=== PATIENT | female | born 1970 | race Caucasian/White ===

== ENCOUNTER 2025-04-15 20:54 | Inpatient (IN) | payer OTHER, SELFPAY ==
[2025-04-15] VITALS (12 sets, daily range): BP systolic 20–113; BP diastolic 55–67; BMI 21.8
[2025-04-15] MEDS: NSS 1000 IV ×2 (08:34→12:59)
[2025-04-15] MEDS: ZOFRAN 4 MG IV (08:35)
[2025-04-15] MEDS: DILAUDID 0.5 MG IV ×2 (08:35→13:56)
[2025-04-15 08:45] LABS: ALT (SGPT) 14 U/L (0-35); AST (SGOT) 16 U/L (14-36); Albumin 4.2 g/dl (3.5-5.0); Alkaline Phosphatase 42 U/L (38-126); Blood Urea Nitrogen 18 mg/dl (7-17); Calcium 8.7 mg/dl (8.4-10.2); Carbon Dioxide 22 mmol/L (22-30); Chloride 100 mmol/L (98-107); Estimated Creatinine Clearance 75 ml/min; Glucose 151 mg/dl (70-99); Lipase 59 U/L (23-300); Potassium 3.9 mmol/L (3.5-5.1); Sodium 129 mmol/L (135-145); Total Protein 6.6 g/dl (6.3-8.2); eGFR > 60.00
[2025-04-15 08:47] LABS: Hematocrit 39.5 % (37.0-47.0); Hemoglobin 13.2 g/dL (12.0-16.0); Mean Corp Hgb Conc. 33.4 g/dL (33.0-37.0); Mean Corpuscular Volume 94.7 fL (81.0-99.0); Platelet Count 249 10^3/uL (130-400); Red Cell Dist. Width 12.1 % (11.5-14.5)
--- NOTE | 2025-04-15 08:56 | ED.GENMED ---
History of Present Illness
<Oscar Galvez Jr., PA-C - Last Filed: 04/15/25 12:06>
General
Chief Complaint: Abdominal Symptoms
Source: patient
Exam Limitations: none
Time Seen by Provider: 04/15/25 08:18
Nursing documentation reviewed up to this point in time: agreed with
History of Present Illness
History of Present Illness:
55-year-old female presenting to the emergency department today with concerns of nausea vomiting abdominal pain starting yesterday has been ongoing over the past 12 hours or so. Mainly started as a left-sided flank pain now mainly on the right side
to the right upper and right lower abdomen. Was given Toradol and route via medics with good relief. Has been vomiting multiple times an hour since. Had an episode of slightly loose bowel movements but denies any significant ongoing diarrhea.
Denies similar symptoms in the past.
Past History
<Oscar Galvez Jr., PA-C - Last Filed: 04/15/25 12:06>
Past History
ED Past Medical History: Other (Lumbar disc disease, spinal stenosis, UTI) and Other (Celiac disease)
ED Past Surgical History: Other (lap )
Social History
Tobacco: Non-smoker
Alcohol: None
Drug: None
Personal:
Living: with family
Employment: Employed
Family History
Family History: Diabetes and CAD
Review of Systems
<Oscar Galvez Jr., PA-C - Last Filed: 04/15/25 12:06>
Review of Systems
Allergies reviewed?: Yes
All Other Systems: ROS reviewed and negative except as documented in HPI and ROS
Phy Exam
<Oscar Galvez Jr., PA-C - Last Filed: 04/15/25 12:06>
Physical Exam
Physical Exam:
GENERAL: Alert , in no apparent distress
EYE: pupils equal and reactive
NECK: Supple, no significant adenopathy.
ENT: o/p clr, mmm.
CARDIAC: Regular rate and rhythm .
LUNGS: Clear breath sounds bilaterally, no acute respiratory distress, no wheezes/rales/rhonchi
ABDOMEN: Right-sided abdominal pain to palpation mainly to the right upper right lower quadrant. Minimal voluntary guarding.
NEUROLOGICAL: Alert and oriented, no focal neuro deficits
SKIN: Warm and dry, skin intact.
MUSCULOSKELETAL: No edema, well perfused.
PSYCH: Normal and appropriate interaction.
Course
<Oscar Galvez Jr., MELE-Addis - Last Filed: 04/15/25 12:06>
Orders/Labs/Results
Orders:
Orders
04/15/25 Breakfast
NPO
Allow oral meds: Yes
Allow clear liquids: No
04/15/25 08:19
Complete Blood Count/With Diff Urgent
Comprehensive Metabolic Panel Urgent
Lipase Urgent
04/15/25 08:25
CT Abd/Pel (IV only)-DH only Urgent
Comment:
Reason For Exam: right sided abd pain
0.9% Sodium Chloride 1000 ml [Nss] 1,000 ml IV BOLUS
Ondansetron Injectable [Zofran] 4 mg IV NOW STA
04/15/25 08:32
HYDROmorphone [Dilaudid] 0.5 mg .ROUTE .STK-MED ONE
HYDROmorphone [Dilaudid] 0.5 mg IV NOW STA
04/15/25 10:25
Urinalysis Reflex To Culture Urgent
Date Specimen was Collected: 04/15/25
Time Specimen was Collected: 10:20
Urine Microscopic Reflex Cult Urgent
04/15/25 10:38
Piperacillin/Tazo 4.5 Gram [Zosyn] 4.5 gram in 100 ml IV NOW
04/15/25 11:11
Admit/Transfer Patient As Directed
Co-Sign Provider:
Level of Care: Post Proc/Surg Recovery
Assign to:: Medical/Surgical
Physician / Group: Pellini/General surgery
Diagnosis: Acute appendicitis
Reason for Overnight Stay: Standard of Care
PRN Pain Medication Management As Directed
May give lesser potent ordered pain med per pt: Yes
preference::
Protocol:: Medication orders for pain may be administered in a
manner that supports deferring to patient preference
when the pt is:
- Requesting an ordered lesser potent pain medication.
Least to most potent pain medications are defined
as: acetaminophen < NSAID < tramadol < opioids
(morphine, oxycodone, hydromorphone).
- Requesting a lesser dose of the same medication IF
ORDERED.
- Requesting a less intrusive route of administration
if both routes are prescribed by the provider (PO <
IV).
04/15/25 11:12
Code Status As Directed
Resuscitation Status: Full Code
04/15/25 11:15
0.9% Sodium Chloride 1000 ml [Nss] 1,000 ml IV 100 mls/hr
Abnormal Lab Results
04/15/25 04/15/25
08:19 10:25
WBC 23.6 H 10^3/uL
(4.8-10.8)
RBC 4.17 L 10^6/uL
(4.20-5.40)
MCH 31.7 H pg
(27.0-31.0)
MPV 10.7 H fL
(7.4-10.4)
Abs Immat Gran (auto) 0.2 H 10^3/uL
(0-0.05)
Absolute Neuts (auto) 20.6 H 10^3/uL
(1.4-6.5)
Absolute Lymphs (auto) 0.9 L 10^3/uL
(1.2-3.4)
Absolute Monos (auto) 1.9 H 10^3/uL
(0.1-0.6)
Immature Gran % 0.6 H %
(0-0.5)
Neutrophils % 87.4 H %
(42.2-75.2)
Lymphocytes % 3.7 L %
(20.5-51.1)
Sodium 129 L mmol/L
(135-145)
BUN 18 H mg/dl
(7-17)
Glucose 151 H mg/dl
(70-99)
Urine Ketones 2+ A
(Negative)
Urine Albumin (Reflex) 1+ A
(Neg - Trace)
04/15/25 08:19
04/15/25 08:19
Vital Signs
Initial and Last Documented VS:
Initial Vital Signs
Temp Pulse Resp BP Pulse Ox
97.9 F 84 16 104/58 98
04/15/25 08:14 04/15/25 08:14 04/15/25 08:14 04/15/25 08:14 04/15/25 08:14
Last Documented Vital Signs
Temp Pulse Resp BP Pulse Ox
97.9 F 84 16 113/67 99
04/15/25 08:14 04/15/25 10:19 04/15/25 10:19 04/15/25 10:19 04/15/25 10:19
<Wilfred Olivas MD - Last Filed: 04/15/25 11:23>
Orders/Labs/Results
Orders:
Orders
04/15/25 Breakfast
NPO
Allow oral meds: Yes
Allow clear liquids: No
04/15/25 08:19
Complete Blood Count/With Diff Urgent
Comprehensive Metabolic Panel Urgent
Lipase Urgent
04/15/25 08:25
CT Abd/Pel (IV only)-DH only Urgent
Comment:
Reason For Exam: right sided abd pain
0.9% Sodium Chloride 1000 ml [Nss] 1,000 ml IV BOLUS
Ondansetron Injectable [Zofran] 4 mg IV NOW STA
04/15/25 08:32
HYDROmorphone [Dilaudid] 0.5 mg .ROUTE .STK-MED ONE
HYDROmorphone [Dilaudid] 0.5 mg IV NOW STA
04/15/25 10:25
Urinalysis Reflex To Culture Urgent
Date Specimen was Collected: 04/15/25
Time Specimen was Collected: 10:20
Urine Microscopic Reflex Cult Urgent
04/15/25 10:38
Piperacillin/Tazo 4.5 Gram [Zosyn] 4.5 gram in 100 ml IV NOW
04/15/25 11:11
Admit/Transfer Patient As Directed
Co-Sign Provider:
Level of Care: Post Proc/Surg Recovery
Assign to:: Medical/Surgical
Physician / Group: Pellini/General surgery
Diagnosis: Acute appendicitis
Reason for Overnight Stay: Standard of Care
PRN Pain Medication Management As Directed
May give lesser potent ordered pain med per pt: Yes
preference::
Protocol:: Medication orders for pain may be administered in a
manner that supports deferring to patient preference
when the pt is:
- Requesting an ordered lesser potent pain medication.
Least to most potent pain medications are defined
as: acetaminophen < NSAID < tramadol < opioids
(morphine, oxycodone, hydromorphone).
- Requesting a lesser dose of the same medication IF
ORDERED.
- Requesting a less intrusive route of administration
if both routes are prescribed by the provider (PO <
IV).
04/15/25 11:12
Code Status As Directed
Resuscitation Status: Full Code
04/15/25 11:15
0.9% Sodium Chloride 1000 ml [Nss] 1,000 ml IV 100 mls/hr
Abnormal Lab Results
04/15/25 04/15/25
08:19 10:25
WBC 23.6 H 10^3/uL
(4.8-10.8)
RBC 4.17 L 10^6/uL
(4.20-5.40)
MCH 31.7 H pg
(27.0-31.0)
MPV 10.7 H fL
(7.4-10.4)
Abs Immat Gran (auto) 0.2 H 10^3/uL
(0-0.05)
Absolute Neuts (auto) 20.6 H 10^3/uL
(1.4-6.5)
Absolute Lymphs (auto) 0.9 L 10^3/uL
(1.2-3.4)
Absolute Monos (auto) 1.9 H 10^3/uL
(0.1-0.6)
Immature Gran % 0.6 H %
(0-0.5)
Neutrophils % 87.4 H %
(42.2-75.2)
Lymphocytes % 3.7 L %
(20.5-51.1)
Sodium 129 L mmol/L
(135-145)
BUN 18 H mg/dl
(7-17)
Glucose 151 H mg/dl
(70-99)
Urine Ketones 2+ A
(Negative)
Urine Albumin (Reflex) 1+ A
(Neg - Trace)
04/15/25 08:19
04/15/25 08:19
Vital Signs
Initial and Last Documented VS:
Initial Vital Signs
Temp Pulse Resp BP Pulse Ox
97.9 F 84 16 104/58 98
04/15/25 08:14 04/15/25 08:14 04/15/25 08:14 04/15/25 08:14 04/15/25 08:14
Last Documented Vital Signs
Temp Pulse Resp BP Pulse Ox
97.9 F 84 16 113/67 99
04/15/25 08:14 04/15/25 10:19 04/15/25 10:19 04/15/25 10:19 04/15/25 10:19
<Oscar Galvez Jr., PA-C - Last Filed: 04/15/25 12:06>
MDM/Problems Addressed
MDM/Problems Addressed:
55-year-old female presenting to the emergency department today with concerns of mainly right-sided abdominal pain with associated intermittent nausea and vomiting. Tender to palpation mainly to the right side the abdomen to the right upper right
lower to minimal pain to the left lower quadrant. Plan for CT scan for further assessment.
CT scan showing uncomplicated acute appendicitis. Case was discussed with general surgery and admitted to surgery service. Stable throughout ER stay. Started on IV antibiotics in the ER.
<Oscar Galvez Jr., PA-C - Last Filed: 04/15/25 12:06>
*Pulse Oximetry
SaO2: 97
Oxygen Mode of Delivery: Room air
Patient hypoxic: no (99)
*Critical Care Note
Total Time (30-74mins, 75-104mins- exclusive of procedures): Not Applicable
ED Attending Note
<Oscar Galvez Jr., PA-C - Last Filed: 04/15/25 12:06>
-
Portions of this chart may have been created with voice recognition software.� Occasional wrong word or��sound alike� substitutions may have occurred due to the inherent limitations of voice recognition software.
<Wilfred Olivas MD - Last Filed: 04/15/25 11:23>
ED Attending Note
Patient seen and examined by attending physician: Yes
ED Attending Note:
Patient presents to ED secondary to worsening abdominal pain associated with multiple episodes of nausea vomiting, since yesterday afternoon. Abdominal pain described as sharp, started on the left side, but has settled on the right side of her
abdomen, without any alleviating or exacerbating factors. Denies fever or chills. Denies diarrhea. Denies trauma. Denies back pain. Denies previous history of similar symptoms.
Physical Exam
General: moderate painful distress, not acutely ill. afebrile
Head: nc/at. eomi
Neck: supple. normal range of motion
Abdomen: normal bowel sounds. moderate RLQ tenderness to palpation with guarding
Neuro: alert and oriented x 3. no focal neurological deficits
Skin: no rash
Psychiatric: well kept. interactive and cooperative
Extremities: no edema. no calf tenderness.
History, exam, and CT scan consistent with acute appendicitis, without evidence of perforation or abscess formation. Pain improved with treatment. Patient remains afebrile and hemodynamically stable.
Discussed with on-call surgery, Dr. Devi, who will admit the patient.
Discharge Plan
Departure
Patient Disposition: Admit
Date of Disposition: 04/15/25
Time of Disposition: 12:05
Admit to: Med/Surg
Admit to doctor: Marito
Presentation/result/management discussed w/ accepting MD/DO: Marito
Patient with high blood pressure during this ER visit?: No
Condition: Fair
Covid-19: Not Applicable
Discharge Problem:
Acute appendicitis
Interventions
Interventions:
*Risk Screen - Suicide Last Done: 04/15/25 08:14
*General Assessment Last Done: 04/15/25 08:14
*Neglect/Abuse Screening Last Done: 04/15/25 08:14
*ED- Fall Risk Assessment Last Done: 04/15/25 08:39
*ED COVID-19 Vaccine History Last Done: 04/15/25 08:39
*ED Influenza Vaccine History Last Done: 04/15/25 08:14
KN-Hqgssq-Ajhdiniqty Assessment Last Done: 04/15/25 08:14
[2025-04-15 10:27] LABS: Nucleated Red Blood Cells % 0 %
[2025-04-15 10:48] LABS: Urine Character Clear (Clear)
[2025-04-15] MEDS: ZOSYN 100 IV (11:03)
--- NOTE | 2025-04-15 11:18 | HPS.HSE ---
Addendum entered and electronically signed by Avi Devi MD 04/15/25 15:53:
Patient seen and examined independently of surgical CLINICAL TRIALS DATA COORDINATOR. Agree with documented history and physical consistent my current examination evaluation with the patient.
HPI: 55-year-old female with past medical history of MS and celiac disease presenting with the acute onset of abdominal pain localized in the right lower quadrant. She has had some intermittent rigors chills fevers over the past few weeks was mild
anorexia but her abdominal pain became acute over the past 24 hours. No similar episodes like this in the past.
Afebrile low-grade tachycardia in the 90s
NAD AAO x 3 but acutely ill-appearing
ABD: Soft, nondistended, tenderness palpation localized in the right lower quadrant
CT imaging with dilated fluid-filled appendix with some air and surrounding inflammatory changes no organizing abscess.
Assessment/plan: 55-year-old female present with acute appendicitis. Reviewed with patient treatment options and she is in agreement to proceed with appendectomy. Laparoscopic appendectomy was reviewed in detail with the patient including surgical
technique utilizing a diagram/drawing, alternative treatment options, benefits and risks of the procedure. Any of the patient's concerns or questions were confirmed to be fully addressed and written informed consent was obtained.
Original Note:
Family Physician
-
Family Physician: NOT KNOW UNKNOWN - PT DOES
Chief Complaint
-
RLQ pain
History of Present Illness
Ms Giron is a 55 yo female with pmh of laparoscopy for ovarian scarring, MS, and celiac dz (last colonoscopy 2021 which was normal) presenting with abdominal pain which began around 3:30 pm yesterday. The pain was initially to her upper abdomen
but this morning it became localized to the RLQ. She notes associated nausea and multiple episodes of vomiting since onset of symptoms with one episode of diarrhea this morning. She denies fevers but is having chills/rigors. Focal RLQ tenderness and
Rovsing's sign are present on exam.
Medical History
Past Medical History
Past Medical History: Reports Other (MS with numbness to RUE/RLE, Celiac dz, HRT for menopause)
Past Surgical History: Reports Gynocological (laparoscopic surgery for scarring around ovary, uterine ablation), Tonsilectomy and Other (Nasal fx repair)
Social History
Tobacco: Non-smoker
Personal:
Living: With Family
Family History
Family History: Not pertinent
Allergies / Home Medications
Allergies reflects when Allergies were last updated in [facility].
Home Medications with original date entered in [facility]
Allergy/Medication List:
Patient Allergies
Allergy/AdvReac Type Severity Reaction Status Date / Time
latex (Latex) Allergy Severe Hives, Verified 04/15/25 08:17
Throat
Swelling
erythromycin base Allergy Blisters Verified 04/15/25 08:17
(Erythromycin Base)
gluten (Gluten) Allergy vomiting Verified 04/15/25 08:17
diarrhea
lactose Allergy Unknown Verified 04/15/25 08:17
Penicillins Allergy Patient Verified 04/15/25 08:17
Denies
�Medication �Instructions �Recorded �Confirmed �Type
cholecalciferol (vitamin D3) 125 125 mcg PO DAILY Supplement 04/15/25 04/15/25 History
mcg (5,000 unit) tablet (Vitamin
D3)
estradiol 0.075 mg/24 hr weekly 1 patch transdermal TIDWELL Hormonal 04/15/25 04/15/25 History
transdermal patch Agent
progesterone micronized 200 mg 200 mg PO HS Hormonal Agent 04/15/25 04/15/25 History
capsule
vitamin B complex 1 tab PO DAILY Supplement 04/15/25 04/15/25 History
Review of Systems
-
A 12 point ROS was completed and negative except as noted: Yes
Physical Exam
Vital Signs
Vital Signs
Temp Pulse Resp BP Pulse Ox
97.9 F 84 16 113/67 99
04/15/25 08:14 04/15/25 10:19 04/15/25 10:19 04/15/25 10:19 04/15/25 10:19
Physical Exam
General: Chills
HEENT: NormoCephalic and Moist mucous membranes
Respiratory: Non Labored Respirations
GI: Soft, Non Distended, Tender (RLQ, +Rovsing's) and Other (No rebound, rigidity or guarding)
Skin: Warm and Dry
Neuro: Awake, Alert and AO x 3
Laboratory Results
-
04/15/25 08:19
04/15/25 08:19
Laboratory Results
Total Bilirubin 1.1 mg/dl (0.2-1.3) 04/15/25 08:19
AST 16 U/L (14-36) 04/15/25 08:19
ALT 14 U/L (0-35) 04/15/25 08:19
Alkaline Phosphatase 42 U/L (38-126) 04/15/25 08:19
Lipase 59 U/L (23-300) 04/15/25 08:19
Data Reviewed
-
CT Scan: Image Personally Visualized and interpreted, Report Reviewed by me, Discussed with Physician, Discussed with Patient and Discussed with Family
Lab Data: Labs Reviewed by me, Discussed with Physician, Discussed with Patient and Discussed with Family
Old Records: Reviewed
Impression/Plan
-
IMPRESSION: 55 yo female presenting with RLQ abdominal pain with associated n/v. CT imaging reviewed and consistent with acute appendicitis with appendicolith present. No perforation or abscess noted on imaging. Marked leukocytosis to 23.6. No
documented fever, chills/rigor on exam. VSS.
PLAN:
ABX initiated in ED with IV Zosyn, will continue
IVF with NSS at 100ml/hr
NPO for OR later today for laparoscopic appendectomy
Analgesics/antiemetics prn
SCDs/Lovenox for VTE ppx
[2025-04-15 11:19] LABS: Urine Red Blood Cell 0-2 /HPF (0-2); Urine Squamous Cell 16-20 /LPF (Few)
--- NOTE | 2025-04-15 11:43 | CM ---
CM reviewed chart and met with pt bedside in ED. Lives with her , 2 story home, [address], has first floor half bath, full flight to second floor bedroom and full bath.
Independent in ADLs, personal care and ambulation at baseline, no assistive devices, no DME.
Confirms prescription coverage.
No hx Vn or SNF, hx OP PT in past
PCP: Shahla Vargas
Pharmacy: [facility]
Anticipate discharge home, no needs, CM will continue to follow.
--- NOTE | 2025-04-15 15:50 | W.SUR.PREOP ---
Pre-Operative Surgical Note
-
I have examined this patient prior to the performance of the scheduled procedure.
The patient's condition is unchanged from the time of the current History and
Physical and the patient is able to undergo the scheduled procedure.
--- NOTE | 2025-04-15 17:02 | W.IMMPOSTOP ---
Addendum entered and electronically signed by Avi Devi MD 04/15/25 20:48:
#[id number]
Original Note:
Surgical Immed Post Op Note
-
Primary Surgeon: Avi Devi MD
Assisting Surgeon: Josh Tan
Karen Hollis NP
Pre-op Diagnosis: Acute appendicitis
Post-op Diagnosis: Perforated, gangrenous acute appendicitis with purulent ascites and generalized peritonitis
Procedure Performed: Laparoscopic appendectomy
Anesthesia Type: GETA +0.25% Marcaine
Specimen / Cultures: Appendix/purulent fluid
Estimated Blood Loss: 6 mm
Complications: None immediate
Operative Findings: Gangrenous appendix freely perforated at time of surgery prior to any manipulation. Purulence throughout right upper quadrant, perihepatic region, right paracolic gutter entering the pelvis. Surrounding exudate. Feculent areas
adjacent to the appendix at area of free perforation as well. Appendectomy completed taking flush with cecum. Inflammation not affecting the base of the appendix/cecum. 2 L irrigation to washout abdominal cavity.
Drains: 19 Tucker drain from the left lower quadrant into the pelvis and right paracolic gutter.
Plan: -Zosyn postop with subsequent 10 days antibiotic coverage
N.p.o., IV fluids, monitor for ongoing ileus postoperatively
Follow-up for operative culture results
Patient's updated postoperatively via phone call
--- NOTE | 2025-04-15 18:17 | PTCARENOTE ---
Patient returned to her room from pacu post laparoscopic appendectomy.She denies any pain at present and said she feels much better.All three incisions are open to air without drainage.Vital signs are stable.The patient is in her bed with the call
[place] in reach.Her is at the bedside.
[2025-04-15] MEDS: ZOSYN 50 IV (18:43)
[2025-04-15] MEDS: LOVENOX 40 MG SC (21:39)
[2025-04-16] MEDS: ZOSYN 50 IV ×4 (00:27→16:48)
[2025-04-16] MEDS: DILAUDID 0.5 MG IV ×3 (00:43→21:01)
[2025-04-16] MEDS: NSS 1000 IV (05:11)
[2025-04-16] MEDS: DILAUDID 0.25 MG IV ×2 (05:21→11:02)
[2025-04-16 07:20] LABS: Hematocrit 33.4 % (37.0-47.0); Hemoglobin 11.2 g/dL (12.0-16.0); Mean Corp Hgb Conc. 33.5 g/dL (33.0-37.0); Mean Corpuscular Volume 97.9 fL (81.0-99.0); Platelet Count 163 10^3/uL (130-400); Red Cell Dist. Width 12.7 % (11.5-14.5)
[2025-04-16 07:31] LABS: Blood Urea Nitrogen 20 mg/dl (7-17); Calcium 7.3 mg/dl (8.4-10.2); Carbon Dioxide 24 mmol/L (22-30); Chloride 104 mmol/L (98-107); Estimated Creatinine Clearance 58 ml/min; Glucose 93 mg/dl (70-99); Magnesium 2.1 mg/dl (1.6-2.3); Potassium 3.7 mmol/L (3.5-5.1); Sodium 132 mmol/L (135-145); eGFR > 60.00
[2025-04-16 07:40] VITALS: BP 96/51
[2025-04-16] MEDS: VITAMIN D3 (cholecalciferol) 125 MCG PO (07:48)
[2025-04-16] MEDS: TORADOL 10 MG IV ×2 (07:52→14:17)
--- NOTE | 2025-04-16 10:59 | W.PN.GS2 ---
Today's Communication / Plan
-
-- Sips for comfort
-- Pain control: Tylenol, Toradol, IV Dilaudid PRN
-- Abx: Zosyn
-- OOB/ambulate
-- GI: PPI
Assessment / Plan
-
Patient is a 55 yo F POD#1 s/p laparoscopic appendectomy and drainage of intra-abdominal abscess
AVSS
Labs notable for downtrending WBC, mild drift in Hb (acute blood loss and dilutional), hyponatremia, normal renal function
Recovering well overall. High risk for ileus. Would maintain on limited oral intake at this time given her abdominal distention. OOB/ambulate. All questions answered.
-- Sips for comfort
-- Pain control: Tylenol, Toradol, IV Dilaudid PRN
-- Abx: Zosyn
-- OOB/ambulate
-- Home meds
-- DVT: Lovenox
-- GI: PPI
Subjective Data
-
Date of Service: April 16, 2025
Major complaints. Feels improved. Abdominal soreness. No nausea or vomiting. No flatus or BM. Voiding.
Objective Data
-
Intake and Output
04/15/25 04/16/25 04/17/25
06:59 06:59 05:59
Intake Total 1869 / 1870
Output Total 50 / 50
Balance 1820 / 1820
Intake:
Oral fluids 120 / 120
IV fluids (Total) 1600 / 1600
Normosol 200 / 200
IV piggybacks 150 / 150
Output:
Drain Output (Total) 50 / 50
Left Lower Abdomen Pete- 50 / 50
Ayers
Other:
Number of approximated MODERATE 1
amounts of urine
Vital Signs
Temp Pulse Resp BP Pulse Ox
98.3 F 62 16 96/51 97
04/16/25 07:40 04/16/25 07:40 04/16/25 07:40 04/16/25 07:40 04/16/25 07:40
Lab Results
04/16/25 06:33
04/16/25 06:33
Calcium 7.3 mg/dl (8.4-10.2) L 04/16/25 06:33
Magnesium 2.1 mg/dl (1.6-2.3) 04/16/25 06:33
Total Bilirubin 1.1 mg/dl (0.2-1.3) 04/15/25 08:19
AST 16 U/L (14-36) 04/15/25 08:19
ALT 14 U/L (0-35) 04/15/25 08:19
Alkaline Phosphatase 42 U/L (38-126) 04/15/25 08:19
Total Protein 6.6 g/dl (6.3-8.2) 04/15/25 08:19
Albumin 4.2 g/dl (3.5-5.0) 04/15/25 08:19
Physical Exam
-
Gen: NAD
Abd: soft, tender diffusely, distended, tympanitic, non-peritoneal, incisions c/d/i - no erythema, ecchymosis or drainage, CHIP seropurulent
Patient has a browning catheter: No
Patient has a central line: No
[2025-04-16] MEDS: LIORESAL 10 MG PO (14:38)
[2025-04-16 15:25] VITALS: BP 98/53
[2025-04-16] MEDS: NSS IV (17:38)
[2025-04-16] MEDS: LOVENOX 40 MG SC (22:01)
[2025-04-16] MEDS: PEPCID 20 MG IV (22:02)
[2025-04-16] MEDS: NSS (PRESERVATIVE FREE) 8 ML IV (22:03)
[2025-04-16 23:40] VITALS: BP 116/61
[2025-04-17] MEDS: ZOSYN 50 IV ×3 (00:44→11:01)
[2025-04-17] MEDS: TYLENOL 650 MG PO ×2 (00:59→11:08)
[2025-04-17] MEDS: NSS 1000 IV (06:16)
[2025-04-17] MEDS: NSS IV (06:16)
[2025-04-17] MEDS: DILAUDID 0.25 MG IV ×2 (06:17→13:34)
[2025-04-17 06:27] LABS: Hematocrit 29.5 % (37.0-47.0); Hemoglobin 10.3 g/dL (12.0-16.0); Mean Corp Hgb Conc. 34.9 g/dL (33.0-37.0); Mean Corpuscular Volume 95.8 fL (81.0-99.0); Platelet Count 145 10^3/uL (130-400); Red Cell Dist. Width 12.6 % (11.5-14.5)
[2025-04-17 06:52] LABS: Blood Urea Nitrogen 19 mg/dl (7-17); Calcium 7.4 mg/dl (8.4-10.2); Carbon Dioxide 20 mmol/L (22-30); Chloride 108 mmol/L (98-107); Estimated Creatinine Clearance 58 ml/min; Glucose 58 mg/dl (70-99); Potassium 3.3 mmol/L (3.5-5.1); Sodium 132 mmol/L (135-145); eGFR > 60.00
[2025-04-17 07:00] VITALS: BP 126/61
[2025-04-17] MEDS: KCL 270 MEQ IV (08:16)
[2025-04-17] MEDS: D5/0.9% SODIUM CHLORIDE 1000 IV (08:16)
[2025-04-17] MEDS: VITAMIN D3 (cholecalciferol) 125 MCG PO (08:17)
--- NOTE | 2025-04-17 09:27 | W.PN.GS2 ---
Today's Communication / Plan
-
-- Trial of clears
-- Abx: Zosyn
-- IVF D5 NS
Assessment / Plan
-
Patient is a 55 yo F POD#2 s/p laparoscopic appendectomy and drainage of intra-abdominal abscess
AVSS
Labs notable for normal WBC, mild drift in Hb (acute blood loss and dilutional), hyponatremia (improved), hypokalemia, hypoglycemia, normal renal function
Recovering well overall. High risk for ileus. Plan for trial of clears given symptomatic and lab improvement. OOB/ambulate. Switch fluids given lyte and glucose issues. All questions answered.
-- Trial of clears
-- Pain control: Tylenol, Toradol, IV Dilaudid PRN
-- Abx: Zosyn
-- IVF D5 NS
-- OOB/ambulate
-- Home meds
-- DVT: Lovenox
-- GI: PPI
Subjective Data
-
Date of Service: April 17, 2025
Feels improved. Less pain and distention. No nausea or vomiting. No flatus or BM. Afebrile.
Objective Data
-
Intake and Output
04/16/25 04/17/25 04/18/25
06:59 05:59 06:59
Intake Total 1870 / 1870 2980 / 2980
Output Total 50 / 50 60 / 60
Balance 1820 / 1820 2920 / 2920
Intake:
Oral fluids 120 / 120 480 / 480
IV fluids (Total) 1600 / 1600 2400 / 2400
Normosol 200 / 200
IV piggybacks 150 / 150 100 / 100
Output:
Drain Output (Total) 50 / 50 60 / 60
Left Lower Abdomen Pete- 50 / 50 60 / 60
Ayers
Other:
Number of approximated MODERATE 1 1
amounts of urine
Vital Signs
Temp Pulse Resp BP Pulse Ox
99.1 F 60 20 126/61 99
04/17/25 07:00 04/17/25 07:00 04/17/25 07:00 04/17/25 07:00 04/17/25 07:00
Lab Results
04/17/25 05:40
04/17/25 05:40
Calcium 7.4 mg/dl (8.4-10.2) L 04/17/25 05:40
Magnesium 2.1 mg/dl (1.6-2.3) 04/16/25 06:33
Total Bilirubin 1.1 mg/dl (0.2-1.3) 04/15/25 08:19
AST 16 U/L (14-36) 04/15/25 08:19
ALT 14 U/L (0-35) 04/15/25 08:19
Alkaline Phosphatase 42 U/L (38-126) 04/15/25 08:19
Total Protein 6.6 g/dl (6.3-8.2) 04/15/25 08:19
Albumin 4.2 g/dl (3.5-5.0) 04/15/25 08:19
Physical Exam
-
Gen: NAD
Abd: soft, less pain and distension, non-peritoneal, incisions c/d/i - no erythema, ecchymosis or drainage, CHIP seropurulent (less purulent than yesterday)
Patient has a browning catheter: No
Patient has a central line: No
[2025-04-17 15:00] VITALS: BP 149/76
[2025-04-17] MEDS: ZOSYN 100 IV ×2 (17:30→23:56)
[2025-04-17] MEDS: PEPCID 20 MG IV (21:31)
[2025-04-17] MEDS: LOVENOX 40 MG SC (21:31)
[2025-04-17] MEDS: NSS (PRESERVATIVE FREE) 8 ML IV (21:33)
[2025-04-17] MEDS: DILAUDID 0.5 MG IV (21:33)
[2025-04-17 23:00] VITALS: BP 149/78
[2025-04-18] MEDS: D5/0.9% SODIUM CHLORIDE 1000 IV (00:02)
[2025-04-18] MEDS: ZOFRAN 4 MG IV ×2 (00:12→18:31)
--- NOTE | 2025-04-18 00:48 | VATNOTE ---
Paged by PCN to look at patients IV. Patient with pain, redness, and swelling to left forearm where IV is. New IV placed and the other removed. PCN at bedside, warm compress applied to left forearm. VAT to follow.
[2025-04-18] MEDS: TYLENOL 650 MG PO ×3 (04:14→21:53)
[2025-04-18] MEDS: LIORESAL 10 MG PO (04:14)
[2025-04-18] MEDS: ZOSYN 100 IV ×3 (06:40→17:42)
[2025-04-18] MEDS: DILAUDID 0.5 MG IV (06:43)
[2025-04-18 07:13] LABS: Hematocrit 30.6 % (37.0-47.0); Hemoglobin 10.6 g/dL (12.0-16.0); Mean Corp Hgb Conc. 34.6 g/dL (33.0-37.0); Mean Corpuscular Volume 95.0 fL (81.0-99.0); Platelet Count 178 10^3/uL (130-400); Red Cell Dist. Width 12.4 % (11.5-14.5)
[2025-04-18 07:35] LABS: Blood Urea Nitrogen 9 mg/dl (7-17); Calcium 7.7 mg/dl (8.4-10.2); Carbon Dioxide 25 mmol/L (22-30); Chloride 108 mmol/L (98-107); Estimated Creatinine Clearance 66 ml/min; Glucose 103 mg/dl (70-99); Potassium 3.8 mmol/L (3.5-5.1); Sodium 134 mmol/L (135-145); eGFR > 60.00
[2025-04-18 07:40] VITALS: BP 155/84
[2025-04-18] MEDS: D5/0.9% SODIUM CHLORIDE IV (07:49)
--- NOTE | 2025-04-18 08:30 | PTCARENOTE ---
Found pt w/ L UE swollen, L FA red and swollen from previous infiltration, now L upper arm PIV painful. VAT called, IV removed, PIV placed in R AC. notified. L UE elevated on pillows.
[2025-04-18] MEDS: VITAMIN D3 (cholecalciferol) 125 MCG PO (08:41)
--- NOTE | 2025-04-18 09:03 | W.PN.GS2 ---
Today's Communication / Plan
-
c/w IV abx and clear liquids
Assessment / Plan
-
Patient is a 55 yo F POD#3 s/p laparoscopic appendectomy and drainage of intra-abdominal abscess
AVSS
Labs notable for normal WBC, h/h stable, hyponatremia (improved), hypokalemia resolved, normal renal function
Cx from OR with pseudomonas, ecoli x2 strains, strep
Recovering well overall. Expected ileus. Tolerating clears but still with some nausea. OOB/ambulate. Switch fluids given lyte and glucose issues. All questions answered.
-- Continue on clears
-- Pain control: Tylenol, Toradol, IV Dilaudid PRN
-- Abx: Zosyn (CX sensitive)
-- Stop IVF
-- OOB/ambulate
-- Home meds
-- DVT: Lovenox
-- GI: PPI
Subjective Data
-
Date of Service: April 18, 2025
Pt seen and examined at bedside with Dr. Poon. Intermittent nausea but no vomiting. Tolerating clears. Passing a little flatus but not much. No Bm as of yet. Pain minimal. Discomfort to LUE at infiltrated IV site.
Objective Data
-
Intake and Output
04/17/25 04/18/25 04/19/25
05:59 06:59 06:59
Intake Total 2980 / 2980 540 / 540
Output Total 60 / 60 90 / 90
Balance 2920 / 2920 450 / 450
Intake:
Oral fluids 480 / 480 540 / 540
IV fluids (Total) 2400 / 2400
IV piggybacks 100 / 100
Output:
Drain Output (Total) 60 / 60 90 / 90
Left Lower Abdomen Pete- 60 / 60 90 / 90
Ayers
Other:
Number of approximated MODERATE 1 4
amounts of urine
Vital Signs
Temp Pulse Resp BP Pulse Ox
98.3 F 60 16 155/84 97
04/18/25 07:40 04/18/25 07:40 04/18/25 07:40 04/18/25 07:40 04/18/25 07:40
Lab Results
04/18/25 06:39
04/18/25 06:39
Calcium 7.7 mg/dl (8.4-10.2) L 04/18/25 06:39
Magnesium 2.1 mg/dl (1.6-2.3) 04/16/25 06:33
Total Bilirubin 1.1 mg/dl (0.2-1.3) 04/15/25 08:19
AST 16 U/L (14-36) 04/15/25 08:19
ALT 14 U/L (0-35) 04/15/25 08:19
Alkaline Phosphatase 42 U/L (38-126) 04/15/25 08:19
Total Protein 6.6 g/dl (6.3-8.2) 04/15/25 08:19
Albumin 4.2 g/dl (3.5-5.0) 04/15/25 08:19
Physical Exam
-
Gen: NAD
LUE edema secondary to infiltrated IV, minimal erythema
Abd: soft, mild distention, non-peritoneal, incisions c/d/i - no erythema, minimal ecchymosis, CHIP seropurulent (less purulent than yesterday)
Patient has a browning catheter: No
Patient has a central line: No
[2025-04-18 12:08] VITALS: BMI 21.8
[2025-04-18] MEDS: DILAUDID IV (12:19)
[2025-04-18] MEDS: TORADOL 10 MG IV ×2 (12:26→18:28)
[2025-04-18] MEDS: LOVENOX 40 MG SC (21:51)
[2025-04-18] MEDS: NSS (PRESERVATIVE FREE) 8 ML IV (21:52)
[2025-04-18] MEDS: PEPCID 20 MG IV (21:52)
[2025-04-18 23:21] VITALS: BP 151/85
[2025-04-19] MEDS: ZOSYN 100 IV ×5 (00:16→23:50)
[2025-04-19] MEDS: TORADOL 10 MG IV ×2 (00:24→11:32)
[2025-04-19] MEDS: TYLENOL 650 MG PO ×2 (05:18→16:30)
--- NOTE | 2025-04-19 07:15 | W.PN.GS2 ---
Today's Communication / Plan
-
`
Assessment / Plan
-
Patient is a 55 yo F POD#4 s/p laparoscopic appendectomy and drainage of intra-abdominal abscess
AFVSS
Cx from OR with pseudomonas, ecoli x2 strains, strep
ileus improving
-- low residue/gluten free diet
-- Pain control: Tylenol, Toradol, IV Dilaudid PRN
-- Abx: Zosyn (CX sensitive)
-- Stop IVF
-- OOB/ambulate
-- Home meds
-- DVT: Lovenox
-- GI: PPI
probable d/c in 24hrs if charlene dietary advancement
Subjective Data
-
Date of Service: April 19, 2025
pt seen and examined, at bedside
charlene clear liquids with early satiety/mild nausea, no vomiting
abdominal/incisional pain controlled
+flatus and multiple loose BMs
Objective Data
-
Intake and Output
04/18/25 04/19/25 04/20/25
06:59 06:59 06:59
Intake Total 540 / 540 680 / 680
Output Total 90 / 90 50 / 50
Balance 450 / 450 630 / 630
Intake:
Oral fluids 540 / 540 480 / 480
IV piggybacks 200 / 200
Output:
Drain Output (Total) 90 / 90 50 / 50
Left Lower Abdomen Pete- 90 / 90 50 / 50
Ayers
Other:
Number of approximated MODERATE 4 2
amounts of urine
Number of approximated LARGE 1
amounts of urine
Vital Signs
Temp Pulse Resp BP Pulse Ox
98.5 F 74 16 151/85 98
04/18/25 23:21 04/18/25 23:21 04/18/25 23:21 04/18/25 23:21 04/18/25 23:21
Lab Results
04/18/25 06:39
04/18/25 06:39
Calcium 7.7 mg/dl (8.4-10.2) L 04/18/25 06:39
Magnesium 2.1 mg/dl (1.6-2.3) 04/16/25 06:33
Total Bilirubin 1.1 mg/dl (0.2-1.3) 04/15/25 08:19
AST 16 U/L (14-36) 04/15/25 08:19
ALT 14 U/L (0-35) 04/15/25 08:19
Alkaline Phosphatase 42 U/L (38-126) 04/15/25 08:19
Total Protein 6.6 g/dl (6.3-8.2) 04/15/25 08:19
Albumin 4.2 g/dl (3.5-5.0) 04/15/25 08:19
Physical Exam
-
NAD AAOx3
ABS: softly distended, mild TTP at incision sites
incision with glue dressings
CHIP with mostly serous, non purulent fluid
[2025-04-19 07:53] VITALS: BP 159/72
[2025-04-19] MEDS: VITAMIN D3 (cholecalciferol) 125 MCG PO (08:10)
[2025-04-19] MEDS: ZOFRAN 4 MG IV (08:10)
--- NOTE | 2025-04-19 14:06 | CM ---
Spoke with patient in her room .She has started low residue diet.
CHIP remains.
Offered VN she declined .
Faraz will drive her home.
PLAN Home no needs
[2025-04-19 15:32] VITALS: BP 146/74
[2025-04-19] MEDS: MOTRIN 400 MG PO (18:01)
[2025-04-19] MEDS: LOVENOX 40 MG SC (21:46)
[2025-04-19] MEDS: NSS (PRESERVATIVE FREE) 8 ML IV (21:46)
[2025-04-19] MEDS: PEPCID 20 MG IV (21:46)
[2025-04-19 23:15] VITALS: BP 138/80
[2025-04-19] MEDS: DILAUDID 0.25 MG IV (23:58)
[2025-04-20] MEDS: ZOSYN 100 IV (05:47)
[2025-04-20] MEDS: DILAUDID 0.25 MG IV (06:41)
--- NOTE | 2025-04-20 07:17 | W.PN.GS2 ---
Today's Communication / Plan
-
`
Assessment / Plan
-
Patient is a 55 yo F POD#5 s/p laparoscopic appendectomy and drainage of intra-abdominal abscess
AFVSS
Cx from OR with pseudomonas, ecoli x2 strains, strep
ileus improving
CHIP removed
-- low residue/gluten free diet
-- Pain control: Tylenol, Toradol, IV Dilaudid PRN
-- Abx: Zosyn (CX sensitive) ->d/c on levaquin flagyl
d/c home
Subjective Data
-
Date of Service: April 20, 2025
pt seen and examined, at bedside
+fl and loose BMs - stable
mild nausea - improved after stopping toradol
Objective Data
-
Intake and Output
04/19/25 04/20/25 04/21/25
06:59 06:59 06:59
Intake Total 680 / 680 1240 / 1240
Output Total 50 / 50 20 / 20
Balance 630 / 630 1220 / 1220
Intake:
Oral fluids 480 / 480 840 / 840
IV piggybacks 200 / 200 400 / 400
Output:
Drain Output (Total) 50 / 50 20 / 20
Left Lower Abdomen Pete- 50 / 50 20 / 20
Ayers
Other:
Number of approximated MODERATE 2 2
amounts of urine
Number of approximated LARGE 1
amounts of urine
Vital Signs
Temp Pulse Resp BP Pulse Ox
98.6 F 69 16 138/80 97
04/19/25 23:15 04/19/25 23:15 04/19/25 23:15 04/19/25 23:15 04/19/25 23:15
Lab Results
04/18/25 06:39
04/18/25 06:39
Calcium 7.7 mg/dl (8.4-10.2) L 04/18/25 06:39
Magnesium 2.1 mg/dl (1.6-2.3) 04/16/25 06:33
Total Bilirubin 1.1 mg/dl (0.2-1.3) 04/15/25 08:19
AST 16 U/L (14-36) 04/15/25 08:19
ALT 14 U/L (0-35) 04/15/25 08:19
Alkaline Phosphatase 42 U/L (38-126) 04/15/25 08:19
Total Protein 6.6 g/dl (6.3-8.2) 04/15/25 08:19
Albumin 4.2 g/dl (3.5-5.0) 04/15/25 08:19
Physical Exam
-
NAD AAOx3
ABD: softly distended, mild TTP at incision and right side, no R/R/G
incisions with glue dressing
CHIP with clear yellow serous output
--- NOTE | 2025-04-20 07:28 | W.DS.TRANS ---
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
-
Discharge Instructions:
Discharge Diagnosis/Procedures Acute appendicitis - gangrenous with perforation
. Laparoscopic appendectomy
Diet As tolerated
Additional Diets Eat small meals at first as bloating is common
after surgery
Activity No strenuous activity
Additional Activity Do not lift over 20lbs for the next 2-3 weeks
Driving Restrictions No driving for 24 hours
Bathing Restrictions OK to Shower
Wound Care Allow the glue to flake off your incisions on
its own over the next 1-2 weeks. Avoid picking
or scrubbing off the glue.
Gently wash abdomen with soap and water, pat dry
. Do not apply lotions or creams.
Instructions:
Stand-Alone Forms:
Changes to Home Medications: No
Discharge Medications:
DC Medications w/original date entered in [facility]
cholecalciferol (vitamin D3) 125 mcg (5,000 unit) tablet (Vitamin D3) 125 mcg PO DAILY Supplement 04/15/25
estradiol 0.075 mg/24 hr weekly transdermal patch 1 patch transdermal TIDWELL Hormonal Agent 04/15/25
progesterone micronized 200 mg capsule 200 mg PO HS Hormonal Agent 04/15/25
vitamin B complex 1 tab PO DAILY Supplement 04/15/25
acetaminophen 500 mg tablet (Tylenol Extra Strength) 1,000 mg (2 x 500 mg) PO Q6HPRN PRN mild pain #1 tab 04/20/25
ibuprofen 200 mg tablet 400 mg (2 x 200 mg) PO Q6HPRN PRN moderate pain #1 tab 04/20/25
levofloxacin 750 mg tablet 750 mg PO DAILY #5 tabs 04/20/25
tramadol 50 mg tablet 25 - 50 mg (0.5 - 1 x 50 mg) PO Q6HPRN PRN severe pain/breakthrough pain #5 tabs 04/20/25
Home Medication Changes
Pending Results: No
[2025-04-20 07:40] VITALS: BP 131/82
--- NOTE | 2025-04-20 07:43 | W.DCSUMMARY ---
Discharge Summary
Discharge Data
Date of Admission: 04/15/25
Date of Discharge: 04/20/25
-
Pending Results: No
Hospital Course
Patient is a 55-year-old female who presented to emergency department evaluation on 04/15/2025 secondary to the acute onset of abdominal pain in the right abdomen. She was found to have acute appendicitis was admitted and underwent surgical
intervention on the date of admission. Operative findings were notable for a perforated, gangrenous acute appendicitis with purulent ascites and generalized peritonitis. Appendectomy was completed uneventfully. 2 L of irrigation was utilized to
washout the abdominal cavity and cultures were obtained. A 19 Tucker drain was placed and the patient was continued on Zosyn postoperatively.
Postoperative course was notable for mild expected ileus. Cultures were polymicrobial including Pseudomonas, 2 species of E. coli and Streptococcus. By postoperative day 5 patient had normalization of her white blood cell count, ambulating with
excellent pain control, full return of GI function with passage of flatus and numerous loose bowels. She tolerated dietary advancement. Remained afebrile with stable vital signs. CHIP cleared to yellow serous output and was removed.
Patient was discharged with an additional 4-day course of Levaquin based on culture and sensitivity data. Outpatient surgical follow-up in 2 weeks was advised.
Discharge Plan
-
Patient Disposition: Home (Routine Discharge)
Discharge Diagnosis/Procedures: Acute appendicitis - gangrenous with perforation. Laparoscopic appendectomy
Condition: Fair
Diet: As tolerated
Additional Diets: Eat small meals at first as bloating is common after surgery
Activity: No strenuous activity
Additional Activity: Do not lift over 20lbs for the next 2-3 weeks
Driving Restrictions: No driving for 24 hours
Bathing Restrictions: OK to Shower
Wound Care: Allow the glue to flake off your incisions on its own over the next 1-2 weeks. Avoid picking or scrubbing off the glue.
Gently wash abdomen with soap and water, pat dry. Do not apply lotions or creams.
Activity Restrictions/Additional Instructions:
�[facility]
Avi Devi MD FACS
[facility]
[address], [address]
[place] [address]
[phone]
Initial Post-Operative Instructions for Laparoscopic/Robotic Surgery
The incision sites are sealed with a surgical glue dressing.� It is safe to shower at any time after surgery when the glue is dry.� Let shower water run over the incisions and then pat dry.
Glue dressing typically peels off in 2-3 weeks.
Abdominal/incisional pain and discomfort, shoulder/scapular pain, bloating, and mild nausea, as well as bruising/stiffness and swelling at the incision sites are common after surgery.� If felt to be excessive, notify us.
Please start postoperative pain management using over the counter medications such as Tylenol and Ibuprofen, per instructions on the bottle, as long as there are no medical reasons why you cannot take these medications.
Ice the incisions sites for 20 minutes every hour or so to help with postoperative incisional pain and reduce postoperative surgical site swelling.� Take care NOT to get an ice burn on the skin surface.
A warm heating pad is often helpful to alleviate shoulder/scapular back pains after laparoscopic procedures.� This pain typically dissipates 24-72hrs post op.
Resume a regular diet initially with smaller meal sizes for the first few days after surgery. If not experiencing postoperative nausea or significant bloating/distention may resume regular diet as tolerated.
Constipation is common following surgery and postoperative narcotic use.� May use a stool softener such as to prevent constipation
If no BM 24hrs after surgery, recommend starting daily Miralax
If no BM for 48hrs despite taking Miralax for 2 days --> recommend then using a dose of magnesium citrate or milk of magnesia with a Senokot tablet to help alleviate post operative constipation as long as there is no nausea/vomiting and passing
gas.
Resume all preoperative medications as prescribed and directed on postoperative medical reconciliation form.
Do not drive or drink alcohol for 24 hrs after having anesthesia or while taking narcotic pain medications.
Resume regular daily light activities, such as walking, standing and going up/down stairs as tolerated within 24hrs of surgery.� Please refrain from lifting over 15-20 lbs or strenuous exercise until postoperative follow up visit &/or approximately
3-4 weeks.�
Call the office with a fever above 101� F, nausea with vomiting, severe abdominal pain, spreading redness and drainage from incision sites or with any concerns/questions.
Please call the office to schedule your postoperative surgical follow-up office visit with Dr. Devi.
Referrals:
Avi Devi MD [Active, Surgical] - in two weeks
Prescriptions:
New
ibuprofen 200 mg tablet
400 mg PO Q6HPRN PRN (Reason: moderate pain) Qty: 1 0RF
tramadol 50 mg tablet
25 - 50 mg PO Q6HPRN PRN (Reason: severe pain/breakthrough pain) Qty: 5 0RF
acetaminophen [Tylenol Extra Strength] 500 mg tablet
1,000 mg PO Q6HPRN PRN (Reason: mild pain) Qty: 1 0RF
levofloxacin 750 mg tablet
750 mg PO DAILY Qty: 5 0RF
Continued
estradiol 0.075 mg/24 hr Patch Weekly
1 patch TRANSDERMAL TIDWELL
progesterone micronized 200 mg Capsule
200 mg PO HS
vitamin B complex Tablet
1 tab PO DAILY
cholecalciferol (vitamin D3) [Vitamin D3] 125 mcg (5,000 unit) Tablet
125 mcg PO DAILY
Discharge Orders:
Discharge Patient (As Directed); Ordered 04/20/25
Ordered By: Avi Devi
Discharge Date and Time
Print Language: MAORI
[2025-04-20] MEDS: VITAMIN D3 (cholecalciferol) 125 MCG PO (08:16)
--- NOTE | 2025-04-20 09:28 | CM ---
Patient left this am without seeing CM. Patient had declined VN previously and to transport patient home. CM will continue to follow for discharge planning needs.
Plan; home with no needs.
== END 2025-04-20 09:18 | disposition home or self-care (01) | DRG 398 ==
LOC: 2 SOUTH 20:54
PROVIDERS: Physician Assistant; Registered Nurse; ADMITTING PHYSICIAN Surgery; EMERGENCY PHYSICIAN Emergency Medicine
PROC: 0DTJ4ZZ Resection of Appendix, Percutaneous Endoscopic Approach (ICD-10-PCS; 2025-04-15)
DX: K35.33 Acute appendicitis with perforation, localized peritonitis, and gangrene, with abscess (principal); D62 Acute posthemorrhagic anemia; E87.1 Hypo-osmolality and hyponatremia; K56.7 Ileus, unspecified; R18.8 Other ascites; K91.89 Other postprocedural complications and disorders of digestive system; E87.6 Hypokalemia; K90.0 Celiac disease
CPT/HCPCS: 74177; 80048; 80053; 81003; 81015; 83690; 83735; 85025; 85027; 87070; 87075; 87077; 87186; 87205; 88304; 96365; 96375; 99284; Q9967

== ENCOUNTER → 2025-05-11 07:48 | Outpatient (REF) | payer OTHER, SELFPAY | LOC: RAD 07:48 | PROVIDERS: ATTENDING PHYSICIAN Surgery; FAMILY PHYSICIAN Internal Medicine | DX: R10.11 Right upper quadrant pain (principal); R14.0 Abdominal distension (gaseous); Z90.49 Acquired absence of other specified parts of digestive tract | CPT/HCPCS: 74177; Q9967 ==